=== PATIENT | female | born 1985 | race African-American/Black ===

== ENCOUNTER 2017-03-28 13:34 | Outpatient (CLI) | payer OTHER ==
--- NOTE | 2017-03-28 15:03 | CT ---
HEAD CT WITHOUT CONTRAST: Date: 03-28-17 Comparison: 05-26-16 History: Benign intracranial hypertension, obstructive hydrocephalus. Technique: Serial axial CT imaging at 5 mm intervals from vertex through skull base obtained without contrast. FINDINGS: The imaged paranasal sinuses/mastoid air cells are well aerated. There is a ventriculoperitoneal shunt inserted via a right posterior parietal approach, distal tip t erminating in the frontal horn of the left lateral ventricle, unchanged. There are numerous focal ar eas of calcification along the course of the falx. There is a extraaxial dense calcification along t he right frontal convexity, stable, which could represent a calcified meningioma or a dense area of dural calcification as well. There is no intracranial hemorrhage, midline shift, or mass effect. IMPRESSION: Stable head CT as described above. POS: [facility]
== END 2017-03-28 13:35 | disposition home or self-care (01) ==
LOC: TBSIIMAG 13:34
PROVIDERS: ATTEND Neurological Surgery
DX: G93.2 Benign intracranial hypertension (principal); G91.9 Hydrocephalus, unspecified; G93.89 Other specified disorders of brain; Z98.2 Presence of cerebrospinal fluid drainage device
CPT/HCPCS: 70450

== ENCOUNTER 2017-04-19 09:35 | Outpatient (CLI) | payer OTHER ==
--- NOTE | 2017-04-19 10:27 | RAD ---
CHEST ONE VIEW: History: Benign intracranial hypertension. FINDINGS: Comparison made with 03-18-16. The heart size is normal. The lungs are expanded without focal areas of consolidation, pneumothorax o r pleural effusions. Shunt catheter tubing is again seen. IMPRESSION: No radiographic evidence of acute cardiopulmonary process. POS: [facility]
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
--- NOTE | 2017-04-19 11:02 | RAD ---
SKULL TWO VIEWS: History: 31-year-old female with right sided shunt tube evaluation. FINDINGS: Right sided shunt tube in place. Unremarkable two view skull. IMPRESSION: Right sided shunt tube. POS: [facility]
--- NOTE | 2017-04-19 11:03 | RAD ---
TWO VIEWS CERVICAL SPINE: Indication: Evaluate shunt. FINDINGS: The visualized course of the shunt appears intact from the right angle of the mandible through the le elyssa of the upper thoracic course. The visualized lungs are clear. Visualized osseous structures are w ithin normal limits. IMPRESSION: Visualized shunt catheter within the region of the cervical spine appears intact. POS: [facility]
== END 2017-04-19 09:36 | disposition home or self-care (01) ==
LOC: TBSIIMAG 09:35
PROVIDERS: ATTEND Neurological Surgery
DX: G93.2 Benign intracranial hypertension (principal); Z98.2 Presence of cerebrospinal fluid drainage device
CPT/HCPCS: 70250; 71010; 72020; 74000

== ENCOUNTER 2017-05-04 14:33 | Outpatient (CLI) | payer OTHER ==
--- NOTE | 2017-05-04 15:54 | MRI ---
MRI CERVICAL SPINE: 05/04/17 HISTORY: Cervical pain, M54.2. Multiplanar and multisequence noncontrast enhanced MRI images cervical spine obtained. The spinal cord is unremarkable with no evidence of cord masses. C1-2, C2-3, C3-4: Unremarkable. C4-5: There is some mild disc desiccation. The central canal and neural foramen are patent. C5-6, C6-7 and C7-T1: Unremarkable. IMPRESSION: Some disc desiccation seen at the C4-5 disc level. The central canal and neural foramen are patent. N o significant evidence of neural foraminal narrowing is seen. POS: [facility]
== END 2017-05-04 14:34 | disposition home or self-care (01) ==
LOC: TBSIIMAG 14:33
PROVIDERS: ATTEND Neurological Surgery
DX: M54.2 Cervicalgia (principal); Z98.890 Other specified postprocedural states
CPT/HCPCS: 72141

== ENCOUNTER 2017-05-19 09:37 | Outpatient (CLI) | payer OTHER ==
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
== END 2017-05-19 09:38 | disposition home or self-care (01) ==
LOC: TBSIIMAG 09:37
PROVIDERS: ATTEND Neurological Surgery
DX: M54.12 Radiculopathy, cervical region (principal)
CPT/HCPCS: 72040

== ENCOUNTER 2017-11-19 21:50 | Emergency (ER) | payer BC, OTHER ==
[2017-11-19] MEDS ORDERED: Ketorolac Tromethamine 30 MG/ML VIAL ONE (22:24)
[2017-11-19] MEDS ORDERED: methylPREDNISolone Sod Succ/PF 125 MG/2 ML VIAL ONE (22:24)
[2017-11-19] MEDS ORDERED: Water For Inject, Bacteriostat 30 ML ONE (22:24)
[2017-11-19] MEDS ORDERED: diphenhydrAMINE 50 MG/ML VIAL ONE (22:24)
[2017-11-19] MEDS ORDERED: Metoclopramide HCl 10 MG/2 ML VIAL ONE (22:24)
--- NOTE | 2017-11-19 22:46 | RAD ---
SHUNTOGRAM: History: Headache for six hours. History of F[employer]ION BU[employer]ER shunt and seizures. FINDINGS: Views of the skull, neck, chest, and abdomen were performed to evaluate the patient's FASHION BUYER shunt. The s wallace appears intact without evidence of fracture of the shunt tubing. The tip of the FASHION BUYER shunt is in t he pelvis near the midline. There is a nonobstructed bowel gas pattern. There is no evidence of acute cardiopulmonary process. IMPRESSION: Intact F[employer]ION BU[employer]ER shunt. POS: [facility]
[2017-11-19 22:57] LABS: #Basophils 0.1 thou/uL (0.0-0.2); #Eosinphils 0.1 thou/uL (0.0-0.7); #Lymphocytes 3.4 thou/uL (1.20-3.40); #Monocytes 0.5 thou/uL (0.11-0.59); #Neutrophils 5.6 thou/uL (1.40-6.50); %Eosinophils 1.1 % (0.0-10.0); %Lymphocytes 35.2 % (21.0-51.0); %Monocytes 5.3 % (0.0-10.0); %Neutrophils 57.3 % (42.0-75.0); Hemoglobin 12.4 g/dL (12.0-16.0); Mean Corpuscular HGB CONC 33.6 g/dL (32.0-36.0); Mean Corpuscular Hemoglobin 31.1 pg (27.0-31.0); Mean Corpuscular Volume 92.7 fL (78.0-98.0); Platelet Count 364 thou/uL (130-400); RBC Distribution Width 11.5 % (11.5-14.5); Red Blood Cell (RBC) Count 3.99 mill/uL (4.20-5.40); White Blood Cell (WBC) Count 9.8 thou/uL (4.8-10.8)
[2017-11-19 23:02] LABS: INR-International Normal Ratio 1.1; Prothrombin Time 13.8 SEC (12.0-14.7)
[2017-11-19 23:20] LABS: ALT (SGPT) 32 U/L (8-55); AST (SGOT) 24 U/L (5-34); Albumin 4.4 g/dL (3.5-5.0); Alkaline Phosphatase 73 U/L (40-150); Anion Gap 13 mmol/L (10-20); BUN (Urea Nitrogen) 11 mg/dL (7.0-18.7); Bilirubin, Total 0.4 mg/dL (0.2-1.2); Calc. Creatinine Clearance 0 mL/min (70-130); Calcium 9.5 mg/dL (7.8-10.44); Carbon Dioxide 25 mmol/L (22-29); Chloride 105 mmol/L (98-107); Estimated GFR-MDRD Greater than 90; Globulin 3.1 g/dL (2.4-3.5); Glucose 94 mg/dL (70-105); Potassium 3.9 mmol/L (3.5-5.1); Protein, Total 7.5 g/dL (6.0-8.3); Sodium 139 mmol/L (136-145)
--- NOTE | 2017-11-19 23:52 | CT ---
CT BRAIN WITHOUT CONTRAST: Comparison: 03-28-17 History: History of seizures and [employer]ING [employer]ER shunt. Headache for six hours. Technique: Multiple contiguous axial images were obtained in a CT of the brain without contrast. FINDINGS: There is a right posterior approach ventriculostomy catheter with its tip in the left lateral ventric le. There is no evidence of hydrocephalus, internal hemorrhage or extraaxial fluid collection. No con fluent infarction is seen. The calvarium is unremarkable. The visualized shunt catheter is intact. The paranasal sinuses and mas toid air cells are well aerated. IMPRESSION: 1. No evidence of acute intracranial abnormality. 2. Unchanged [employer]ER shunt. POS: [facility]
== END 2017-11-20 03:06 | disposition home or self-care (01) ==
LOC: ERS 21:50
DX: R51 Headache (principal); G40.909 Epilepsy, unspecified, not intractable, without status epilepticus; Z79.01 Long term (current) use of anticoagulants; F32.9 Major depressive disorder, single episode, unspecified; F43.10 Post-traumatic stress disorder, unspecified; F17.210 Nicotine dependence, cigarettes, uncomplicated; Z79.899 Other long term (current) drug therapy
CPT/HCPCS: 36415; 70450; 75809; 80053; 85025; 85610; 85730; 96365; 96366; 96375; J1200; J1885; J2765; J2930

== ENCOUNTER 2017-12-06 15:25 | Outpatient (CLI) | payer BC, OTHER ==
--- NOTE | 2017-12-06 21:11 | MRI ---
BRAIN MRI WITH AND WITHOUT CONTRAST 12/06/17 HISTORY: Localized symptomatic epilepsy. Epileptic seizure. Complex partial seizures. COMPARISON: None. TECHNIQUE: Brain MRI is performed with and without intravenous gadolinium administration. Multisequential, multi planar imaging is performed. FINDINGS: There appears to be a ventriculoperitoneal shunt catheter with the distal tip in the body of the left lateral ventricle. The catheter crosses midline. The catheter approaches via the right occipital reg ion. On the axial gradient echo sequence, no parenchymal hemorrhage. No parenchymal mass, mass effect or midline shift. Brain volume is age appropriate. Cortical miller-whi te matter differentiation is preserved. No evidence of hydrocephalus. No evidence of sulcal effacemen t. No significant white matter hyperintensities. Adequate aeration of the sinuses and mastoid air cells. On the coronal sequences, there is symmetric signal intensity of the hippocampi. No evidence of mesio temporal sclerosis. The sella is partially empty. The pituitary stalk is midline. Central arterial flow voids are maintained. Absent restricted diffusion. The calvarium has a normal T1 marrow signal intensity. Midline brain parenchymal structures are unrem arkable. No pathologic enhancement of the brain parenchyma. IMPRESSION: 1. Right parietal [employer] shunt catheter without evidence of hydrocephalus. 2. No pathologic enhancement of the brain parenchyma. 3. No evidence of mesiotemporal sclerosis. 4. Partially empty sella is noted. POS: [facility]
== END 2017-12-06 15:26 | disposition home or self-care (01) ==
LOC: SCSMRI 15:25
PROVIDERS: ATTEND Psychiatry & Neurology Neurology
DX: G40.209 Localization-related (focal) (partial) symptomatic epilepsy and epileptic syndromes with complex partial seizures, not intractable, without status epilepticus (principal); Z98.2 Presence of cerebrospinal fluid drainage device
CPT/HCPCS: 70553

== ENCOUNTER 2018-02-01 11:14 | Emergency (ER) | payer BC, OTHER ==
[2018-02-01 12:06] LABS: #Basophils 0.1 thou/uL (0.0-0.2); #Eosinphils 0.1 thou/uL (0.0-0.7); #Lymphocytes 2.8 thou/uL (1.20-3.40); #Monocytes 0.6 thou/uL (0.11-0.59); #Neutrophils 5.4 thou/uL (1.40-6.50); %Basophils 1.2 % (0.0-1.0); %Eosinophils 0.9 % (0.0-10.0); %Monocytes 6.2 % (0.0-10.0); %Neutrophils 60.8 % (42.0-75.0); Hemoglobin 12.6 g/dL (12.0-16.0); INR-International Normal Ratio 1.1; Mean Corpuscular HGB CONC 34.2 g/dL (32.0-36.0); Mean Corpuscular Hemoglobin 30.3 pg (27.0-31.0); Mean Corpuscular Volume 88.5 fL (78.0-98.0); Mean Platelet Volume 7.5 fL (7.4-10.4); Platelet Count 370 thou/uL (130-400); Prothrombin Time 13.9 SEC (12.0-14.7); RBC Distribution Width 11.2 % (11.5-14.5); Red Blood Cell (RBC) Count 4.15 mill/uL (4.20-5.40); White Blood Cell (WBC) Count 8.9 thou/uL (4.8-10.8)
[2018-02-01] MEDS ORDERED: Acetaminophen 500 MG TAB ONE (12:08)
[2018-02-01 12:13] LABS: Anion Gap 11 mmol/L (10-20); BUN (Urea Nitrogen) 12 mg/dL (7.0-18.7); Calc. Creatinine Clearance 0 mL/min (70-130); Calcium 9.6 mg/dL (7.8-10.44); Carbon Dioxide 24 mmol/L (22-29); Chloride 108 mmol/L (98-107); Estimated GFR-MDRD Greater than 90; Glucose 98 mg/dL (70-105); Sodium 139 mmol/L (136-145)
== END 2018-02-01 12:38 | disposition home or self-care (01) ==
LOC: SCSER 11:14
DX: G40.909 Epilepsy, unspecified, not intractable, without status epilepticus (principal); F32.9 Major depressive disorder, single episode, unspecified; F43.10 Post-traumatic stress disorder, unspecified; F17.210 Nicotine dependence, cigarettes, uncomplicated
CPT/HCPCS: 80048; 85025; 85610; 85730; 99284

== ENCOUNTER 2018-08-09 07:56 | Emergency (ER) | payer BC, OTHER ==
[2018-08-09] MEDS ORDERED: Ketorolac Tromethamine 30 MG/ML VIAL ONE (08:26)
[2018-08-09] MEDS ORDERED: diphenhydrAMINE 50 MG/ML VIAL ONE (08:26)
[2018-08-09] MEDS ORDERED: Promethazine HCl 25 MG/ML VIAL ONE (08:27)
[2018-08-09] MEDS ORDERED: Prochlorperazine 10 MG/2 ML VIAL ONE (08:27)
== END 2018-08-09 10:46 | disposition home or self-care (01) ==
LOC: SCSER 07:56
DX: R51 Headache (principal); G40.909 Epilepsy, unspecified, not intractable, without status epilepticus; F32.9 Major depressive disorder, single episode, unspecified; F43.10 Post-traumatic stress disorder, unspecified; F17.210 Nicotine dependence, cigarettes, uncomplicated
CPT/HCPCS: 96365; 96368; 96375; J0780; J1200; J1885; J2550

== ENCOUNTER 2020-04-30 12:16 | Emergency (ER) | payer BC, OTHER ==
[2020-04-30 13:16] LABS: #Basophils 0.1 thou/uL (0.0-0.2); #Eosinphils 0.3 thou/uL (0.0-0.7); #Lymphocytes 4.2 thou/uL (1.20-3.40); #Monocytes 0.7 thou/uL (0.11-0.59); #Neutrophils 7.2 thou/uL (1.40-6.50); %Basophils 0.9 % (0.0-1.0); %Eosinophils 2.8 % (0.0-10.0); %Lymphocytes 33.3 % (21.0-51.0); %Monocytes 5.2 % (0.0-10.0); %Neutrophils 57.8 % (42.0-75.0); Hemoglobin 12.5 g/dL (12.0-16.0); Mean Corpuscular HGB CONC 32.7 g/dL (32.0-36.0); Mean Corpuscular Hemoglobin 30.5 pg (27.0-31.0); Mean Platelet Volume 7.7 fL (7.4-10.4); Platelet Count 377 thou/uL (130-400); RBC Distribution Width 12.6 % (11.5-14.5); White Blood Cell (WBC) Count 12.5 thou/uL (4.8-10.8)
[2020-04-30 13:51] LABS: ALT (SGPT) 24 U/L (8-55); AST (SGOT) 23 U/L (5-34); Albumin 4.1 g/dL (3.5-5.0); Alkaline Phosphatase 73 U/L (40-110); Anion Gap 15 mmol/L (10-20); BUN (Urea Nitrogen) 11 mg/dL (7.0-18.7); Bilirubin, Total 0.3 mg/dL (0.2-1.2); Calc. Creatinine Clearance 0 mL/min (70-130); Calcium 8.9 mg/dL (7.8-10.44); Carbon Dioxide 23 mmol/L (22-29); Chloride 106 mmol/L (98-107); Globulin 3.7 g/dL (2.4-3.5); Glucose 79 mg/dL (70-105); Potassium 4.3 mmol/L (3.5-5.1); Protein, Total 7.8 g/dL (6.0-8.3); Sodium 140 mmol/L (136-145)
[2020-04-30 15:53] LABS: Bilirubin Negative (Negative); Blood, Urine Negative (Negative); Clarity Clear (Clear); Glucose, Urine (Dipstick) Normal (Negative); Ketone, Urine Negative (Negative); Leukocyte Negative Leu/uL (Negative); Nitrite Negative (Negative); Protein, Urine (Dipstick) 10 mg/dL (Neg-Trace); Specific Gravity, Urine 1.029 (1.002-1.036); Urobilinogen Normal mg/dL (Less than 2)
[2020-04-30 15:54] LABS: Pregnancy Test - Urine (BHCG) Negative (Negative); Pregu Control Background? CLEAR/WHITE (CLR/WHITE); Pregu Control Bar Appear? YES (CONTROL BAR); Specific Gravity 1.029 (1.002-1.036)
--- NOTE | 2020-04-30 16:45 | CT ---
Exam: Head CT without contrast HISTORY: Emergency department presentation for seizure activity while at work. COMPARISON: 11/19/2017 Correlation: Brain MRI 725 FINDINGS: Hemorrhage: No intraparenchymal hemorrhage or extra-axial hematoma. Brain parenchyma: Cortical mliler-white matter differentiation is preserved. No mass effect or midline shift. Basilar cisterns are patent. Ventricular system: Redemonstration of a ventriculoperitoneal shunt catheter via the right parietal a pproach. Catheter crosses midline. Distal tip is presumed to be in the anterior body of the left ventricle. Ventricle system appears to be decompressed. Correlate for possible over shunting. Calvarium: Intact. Stable shanae hole defect in the right parietal calvarium. Sinuses and mastoid air cells: Adequate aeration. IMPRESSION: 1. No acute intracranial process 2. Ventricle peritoneal shunt catheter as described above. Correlate for possible over shunting.
== END 2020-04-30 17:11 | disposition home or self-care (01) ==
LOC: ERS 12:16
DX: G40.909 Epilepsy, unspecified, not intractable, without status epilepticus (principal); F17.210 Nicotine dependence, cigarettes, uncomplicated; Z79.01 Long term (current) use of anticoagulants; Z79.899 Other long term (current) drug therapy
CPT/HCPCS: 36415; 70450; 80053; 80177; 81003; 81025; 85025

== ENCOUNTER 2021-05-17 12:21 | Outpatient (CLI) | payer BC | END 2021-05-17 12:22 | disposition home or self-care (01) | LOC: ULT 12:21 | PROVIDERS: ATTEND Family Medicine | DX: I95.1 Orthostatic hypotension (principal); R60.0 Localized edema; I08.1 Rheumatic disorders of both mitral and tricuspid valves | CPT/HCPCS: 93306 ==

== ENCOUNTER 2022-04-28 12:32 | Outpatient (CLI) | payer BC | END 2022-04-28 12:33 | disposition home or self-care (01) | LOC: EEG 12:32 | PROVIDERS: ATTEND Psychiatry & Neurology Neurology | DX: G43.109 Migraine with aura, not intractable, without status migrainosus (principal); Z98.2 Presence of cerebrospinal fluid drainage device | CPT/HCPCS: 70553; 95816; 95819; 95957 ==

== ENCOUNTER 2023-05-09 12:37 | Inpatient (IN) | payer BC ==
[2023-05-09 14:03] LABS: Hematocrit 38.6 % (36.0-47.0); Hemoglobin 12.7 g/dL (12.0-16.0); Manual Diff?? YES; Mean Corpuscular HGB CONC 32.9 g/dL (32.0-36.0); Mean Corpuscular Hemoglobin 29.6 pg (27.0-31.0); Mean Platelet Volume 9.4 fL (7.4-10.4); Platelet Count 447 10x3/uL (130-400); RBC Distribution Width 14.1 % (11.5-14.5); Red Blood Cell (RBC) Count 4.29 mill/uL (4.20-5.40)
[2023-05-09 14:08] LABS: Delete Auto Diff?? YES
[2023-05-09 14:25] LABS: Band 2 % (5-11); Lymphocytes 39 % (21-51); Monocytes 6 % (0-10); Neutrophil 52 % (42-75); Reactive Lymphocytes 1 % (0-10)
[2023-05-09 14:26] LABS: Platelet Adequacy Comment Appears Increased; RBC Morph Comment Within Normal Limits
[2023-05-09 14:32] LABS: ALT (SGPT) 76 U/L (8-55); AST (SGOT) 33 U/L (5-34); Albumin 4.4 g/dL (3.5-5.0); Alkaline Phosphatase 103 U/L (40-110); Anion Gap 14 mmol/L (10-20); BUN (Urea Nitrogen) 10 mg/dL (7.0-18.7); Bilirubin, Total 0.2 mg/dL (0.2-1.2); Calc. Creatinine Clearance 0 mL/min (70-130); Calcium 9.4 mg/dL (7.8-10.44); Carbon Dioxide 22 mmol/L (22-29); Chloride 107 mmol/L (98-107); Estimated GFR 103; Globulin 3.6 g/dL (2.4-3.5); Glucose 71 mg/dL (70-105); Potassium 3.6 mmol/L (3.5-5.1); Sodium 139 mmol/L (136-145)
[2023-05-09 15:40] LABS: Prothrombin Time 13.8 sec (12.0-14.7)
[2023-05-09 15:41] LABS: PTT 27.8 sec (22.9-36.1)
[2023-05-09 17:20] LABS: Lactic Acid 1.3 mmol/L (0.5-2.2)
[2023-05-09] MEDS ORDERED: Acetaminophen 500 MG TAB ONE (17:34)
[2023-05-09] MEDS ORDERED: Bisacodyl 10 MG SUPP PR PRN (18:50)
[2023-05-09] MEDS ORDERED: Senokot S 8.6-50 MG TAB PO PRN (18:50)
[2023-05-09] MEDS ORDERED: Bisacodyl 5 MG TAB PO PRN (18:50)
[2023-05-09] MEDS ORDERED: Lorazepam 2 MG/ML VIAL SLOW IVP PRN (18:50)
[2023-05-09 19:05] LABS: BHCG - Serum Negative (NEGATIVE); Pregs Control Background? CLEAR/WHITE (CLR/WHITE); Pregs Control Bar Appear? YES (CONTROL BAR)
[2023-05-09] MEDS: Apixaban 5 MG TAB PO SCH (22:38)
[2023-05-09 22:42] VITALS: BMI 46.0
[2023-05-10 05:41] LABS: #Eosinphils 0.2 thou/uL (0.0-0.7); #Monocytes 0.6 thou/uL (0.11-0.59); #Neutrophils 4.7 thou/uL (1.40-6.50); %Basophils 0.5 % (0.0-1.0); %Eosinophils 1.8 % (0.0-10.0); %Lymphocytes 35.6 % (21.0-51.0); %Monocytes 6.9 % (0.0-10.0); %Neutrophils 55.1 % (42.0-75.0); Hematocrit 35.3 % (36.0-47.0); Hemoglobin 11.4 g/dL (12.0-16.0); Mean Corpuscular HGB CONC 32.3 g/dL (32.0-36.0); Mean Corpuscular Hemoglobin 29.5 pg (27.0-31.0); Mean Corpuscular Volume 91.2 fl (78.0-98.0); Mean Platelet Volume 9.8 fL (7.4-10.4); Platelet Count 413 10x3/uL (130-400); RBC Distribution Width 14.2 % (11.5-14.5); Red Blood Cell (RBC) Count 3.87 mill/uL (4.20-5.40); White Blood Cell (WBC) Count 8.5 10x3/uL (4.8-10.8)
[2023-05-10 06:04] LABS: Anion Gap 11 mmol/L (10-20); BUN (Urea Nitrogen) 10 mg/dL (7.0-18.7); Calc. Creatinine Clearance 253 mL/min (70-130); Calcium 8.7 mg/dL (7.8-10.44); Carbon Dioxide 24 mmol/L (22-29); Cardiac Risk 5.7 (Less than 4.5); Chloride 108 mmol/L (98-107); Cholesterol 221 mg/dl (< 200 Desired); Estimated GFR 107; Glucose 97 mg/dL (70-105); HDL Cholesterol 39 mg/dL (>60 Neg Risk); LDL Cholesterol, Calculated 161 mg/dL; Magnesium 2.1 mg/dL (1.6-2.6); Potassium 3.6 mmol/L (3.5-5.1); Sodium 139 mmol/L (136-145); Triglycerides 104 mg/dL (Less than 150)
[2023-05-10] MEDS: Lorazepam 2 MG/ML VIAL SLOW IVP SCH ×2 (07:24→12:12)
[2023-05-10] MEDS ORDERED: Enoxaparin 40 MG (0.4 mL) SYRINGE SC SCH (09:00)
[2023-05-10] MEDS ORDERED: Magnevist 469MG/ML 20 ML VIAL ONE (10:00)
[2023-05-10] MEDS: Apixaban 5 MG TAB PO SCH ×2 (10:18→22:11)
[2023-05-10] MEDS ORDERED: hydrALAZINE 25 MG TAB PO PRN (12:52)
[2023-05-10 18:12] LABS: Bacteria/HPF None Seen HPF (None Seen); Bilirubin Negative (Negative); Blood, Urine Negative (Negative); CAUTI Indications for Culture Dysuria,urgency,freq; Clarity Turbid (Clear); Glucose, Urine (Dipstick) Normal (Negative); Ketone, Urine Negative (Negative); Leukocyte 25 Leu/uL (Negative); Nitrite Negative (Negative); Protein, Urine (Dipstick) 20 mg/dL (Neg-Trace); RBC/HPF 0-3 HPF (0-3); Specific Gravity, Urine 1.034 (1.002-1.036); Urobilinogen Normal mg/dL (Less than 2); WBC/HPF 0-3 HPF (0-3)
[2023-05-10 18:15] LABS: Urine Culture Reflex No No
[2023-05-10] MEDS: hydrOXYzine 25 MG TAB PO SCH ×2 (19:01→22:08)
[2023-05-10] MEDS ORDERED: Phenytoin Extended Release 100 MG CAP PO SCH (21:00)
[2023-05-10] MEDS: levETIRAcetam 500 MG TAB PO SCH (22:08)
[2023-05-10] MEDS: Diazepam 5 MG TAB PO SCH (22:10)
[2023-05-10] MEDS: Sertraline 100 MG TAB PO SCH (22:10)
[2023-05-10] MEDS: Topiramate 25 MG TAB PO SCH (22:10)
[2023-05-10] MEDS: traZODone HCl 50 MG TAB PO SCH (22:11)
[2023-05-10] MEDS: Prazosin HCl 1 MG CAP PO SCH (22:11)
[2023-05-10] MEDS: Aripiprazole 15 MG TAB PO SCH (22:12)
[2023-05-11 05:37] LABS: #Eosinphils 0.1 thou/uL (0.0-0.7); #Monocytes 0.5 thou/uL (0.11-0.59); #Neutrophils 6.4 thou/uL (1.40-6.50); %Basophils 0.4 % (0.0-1.0); %Eosinophils 1.1 % (0.0-10.0); %Lymphocytes 29.2 % (21.0-51.0); %Monocytes 5.1 % (0.0-10.0); Hematocrit 36.4 % (36.0-47.0); Hemoglobin 11.8 g/dL (12.0-16.0); Mean Corpuscular HGB CONC 32.4 g/dL (32.0-36.0); Mean Corpuscular Hemoglobin 29.6 pg (27.0-31.0); Mean Corpuscular Volume 91.2 fl (78.0-98.0); Mean Platelet Volume 9.6 fL (7.4-10.4); Platelet Count 393 10x3/uL (130-400); RBC Distribution Width 14.2 % (11.5-14.5); Red Blood Cell (RBC) Count 3.99 mill/uL (4.20-5.40)
[2023-05-11 06:02] LABS: Phosphorus 3.6 mg/dL (2.3-4.7)
[2023-05-11 06:03] LABS: ALT (SGPT) 44 U/L (8-55); AST (SGOT) 14 U/L (5-34); Albumin 3.6 g/dL (3.5-5.0); Alkaline Phosphatase 82 U/L (40-110); Anion Gap 13 mmol/L (10-20); BUN (Urea Nitrogen) 10 mg/dL (7.0-18.7); Bilirubin, Total 0.2 mg/dL (0.2-1.2); Calc. Creatinine Clearance 267 mL/min (70-130); Calcium 8.5 mg/dL (7.8-10.44); Carbon Dioxide 20 mmol/L (22-29); Chloride 110 mmol/L (98-107); Estimated GFR 114; Globulin 3.3 g/dL (2.4-3.5); Glucose 95 mg/dL (70-105); Potassium 3.5 mmol/L (3.5-5.1); Protein, Total 6.9 g/dL (6.0-8.3); Sodium 139 mmol/L (136-145)
[2023-05-11] MEDS: Topiramate 25 MG TAB PO SCH ×2 (08:58→21:19)
[2023-05-11] MEDS: levETIRAcetam 500 MG TAB PO SCH ×2 (08:58→21:16)
[2023-05-11] MEDS: hydrOXYzine 25 MG TAB PO SCH ×4 (08:58→21:17)
[2023-05-11] MEDS: Apixaban 5 MG TAB PO SCH ×2 (08:58→21:17)
[2023-05-11] MEDS: SUMAtriptan Succinate 50 MG TAB PO PRN (12:16)
[2023-05-11] MEDS: Lorazepam 2 MG/ML VIAL SLOW IVP SCH (12:44)
[2023-05-11] MEDS: Lidocaine 4% Patch TD SCH (17:54)
[2023-05-11] MEDS ORDERED: Phenytoin Extended Release 100 MG CAP PO SCH (21:00)
[2023-05-11] MEDS: Diazepam 5 MG TAB PO SCH (21:16)
[2023-05-11] MEDS: Prazosin HCl 1 MG CAP PO SCH (21:16)
[2023-05-11] MEDS: Aripiprazole 15 MG TAB PO SCH (21:17)
[2023-05-11] MEDS: Sertraline 100 MG TAB PO SCH (21:17)
[2023-05-11] MEDS: traZODone HCl 50 MG TAB PO SCH (21:17)
[2023-05-11] MEDS: Cholecalciferol 1,000 UNITS (25 MCG) TAB PO SCH (21:17)
[2023-05-12] MEDS ORDERED: Transdermal Patch Removal TOP SCH (05:00)
[2023-05-12] MEDS: SUMAtriptan Succinate 50 MG TAB PO PRN (05:57)
[2023-05-12 06:36] LABS: #Eosinphils 0.1 thou/uL (0.0-0.7); #Monocytes 0.8 thou/uL (0.11-0.59); #Neutrophils 7.6 thou/uL (1.40-6.50); %Basophils 0.3 % (0.0-1.0); %Eosinophils 0.9 % (0.0-10.0); %Monocytes 6.8 % (0.0-10.0); %Neutrophils 65.7 % (42.0-75.0); Hematocrit 35.9 % (36.0-47.0); Hemoglobin 11.5 g/dL (12.0-16.0); Mean Corpuscular Volume 90.7 fl (78.0-98.0); Mean Platelet Volume 9.9 fL (7.4-10.4); Platelet Count 404 10x3/uL (130-400); RBC Distribution Width 14.1 % (11.5-14.5); Red Blood Cell (RBC) Count 3.96 mill/uL (4.20-5.40); White Blood Cell (WBC) Count 11.6 10x3/uL (4.8-10.8)
[2023-05-12 07:01] LABS: Anion Gap 12 mmol/L (10-20); BUN (Urea Nitrogen) 7 mg/dL (7.0-18.7); Calc. Creatinine Clearance 263 mL/min (70-130); Calcium 8.7 mg/dL (7.8-10.44); Carbon Dioxide 21 mmol/L (22-29); Chloride 110 mmol/L (98-107); Estimated GFR 112; Glucose 109 mg/dL (70-105); Sodium 139 mmol/L (136-145)
[2023-05-12] MEDS: Topiramate 25 MG TAB PO SCH ×2 (08:41→20:59)
[2023-05-12] MEDS: levETIRAcetam 500 MG TAB PO SCH ×2 (08:41→20:57)
[2023-05-12] MEDS: Apixaban 5 MG TAB PO SCH ×2 (08:41→20:53)
[2023-05-12] MEDS: hydrOXYzine 25 MG TAB PO SCH ×3 (08:43→20:53)
[2023-05-12] MEDS ORDERED: lamoTRIgine 25 MG TAB PO SCH (09:00)
[2023-05-12] MEDS ORDERED: Acetaminophen 500 MG TAB PO PRN (11:17)
[2023-05-12] MEDS: Lidocaine 4% Patch TD SCH (16:40)
[2023-05-12] MEDS: Aripiprazole 15 MG TAB PO SCH (20:52)
[2023-05-12] MEDS: Diazepam 5 MG TAB PO SCH (20:52)
[2023-05-12] MEDS: Sertraline 100 MG TAB PO SCH (20:53)
[2023-05-12] MEDS: Cholecalciferol 1,000 UNITS (25 MCG) TAB PO SCH (20:53)
[2023-05-12] MEDS: Prazosin HCl 1 MG CAP PO SCH (20:53)
[2023-05-12] MEDS ORDERED: traZODone HCl 50 MG TAB PO SCH (21:00)
[2023-05-12] MEDS ORDERED: Phenytoin Extended Release 100 MG CAP PO SCH (21:00)
[2023-05-13 00:32] VITALS: BP 128/77; TEMP 98.2
[2023-05-13 01:21] LABS: SARS-CoV-2 NAA Rapid Test Not Detected (NotDetected)
== END 2023-05-13 04:00 | disposition short-term general hospital (02) | DRG 103 ==
LOC: ERS 12:37 → 2SE 21:49 → OBSVTOIN 05-11 15:25
PROVIDERS: ADMIT Hospitalist; ATTEND Family Medicine
PROC: 4A00X4Z Measurement of Central Nervous Electrical Activity, External Approach (ICD-10-PCS; principal; 2023-05-11)
DX: G93.2 Benign intracranial hypertension (principal); F31.9 Bipolar disorder, unspecified; F43.10 Post-traumatic stress disorder, unspecified; R20.2 Paresthesia of skin; H54.7 Unspecified visual loss; R29.898 Other symptoms and signs involving the musculoskeletal system; G62.9 Polyneuropathy, unspecified; E55.9 Vitamin D deficiency, unspecified; M47.812 Spondylosis without myelopathy or radiculopathy, cervical region; M50.222 Other cervical disc displacement at C5-C6 level; Z88.0 Allergy status to penicillin; Z88.2 Allergy status to sulfonamides; Z91.013 Allergy to seafood; Z79.899 Other long term (current) drug therapy; Z86.73 Personal history of transient ischemic attack (TIA), and cerebral infarction without residual deficits; Z11.52 Encounter for screening for COVID-19
CPT/HCPCS: 36415; 70450; 70553; 72141; 72146; 72148; 75809; 80048; 80053; 80061; 80177; 81001; 82306; 82310; 83605; 83735; 84100; 84145; 84146; 84443; 84703; 85025; 85610; 85730; 87040; 95711; 95819; 96360; 96374; 96376; A9579; G0378; J2060; U0002

== ENCOUNTER 2025-02-16 09:18 | Emergency (ER) | payer OTHER, SELFPAY ==
[2025-02-16 10:04] LABS: #Basophils 0.06 10x3/uL (0.0-0.2); #Eosinophils 0.10 10x3/uL (0.0-0.7); #Monocytes 0.39 10x3/uL (0.11-0.59); #Neutrophils 5.64 10x3/uL (1.40-6.50); %Basophils 0.6 % (0.0-1.0); %Eosinophils 1.0 % (0.0-10.0); %Lymphocytes 35.9 % (21.0-51.0); %Monocytes 4.0 % (0.0-10.0); %Neutrophils 58.2 % (42.0-75.0); Hematocrit 40.1 % (36.0-47.0); Hemoglobin 12.9 g/dL (12.0-16.0); Mean Corpuscular Hemoglobin 29.1 pg (27.0-31.0); Mean Corpuscular Volume 90.3 fL (78.0-98.0); Platelet Count 376 10x3/uL (130-400); Red Blood Cell (RBC) Count 4.44 mill/uL (4.20-5.40); White Blood Cell (WBC) Count 9.70 10x3/uL (4.8-10.8)
[2025-02-16] MEDS ORDERED: Prochlorperazine 10 MG/2 ML VIAL ONE (10:09)
[2025-02-16] MEDS ORDERED: Ketorolac Tromethamine 30 MG (1 mL) VIAL ONE (10:17)
[2025-02-16 10:18] LABS: BHCG - Serum Negative (NEGATIVE); Pregs Control Background? CLEAR/WHITE (CLR/WHITE); Pregs Control Bar Appear? YES (CONTROL BAR)
[2025-02-16 10:26] LABS: ALT (SGPT) 9 U/L (Less than 34); AST (SGOT) 16 U/L (11-34); Albumin 3.9 g/dL (3.1-4.5); Alkaline Phosphatase 69 U/L (40-110); Anion Gap 16 mmol/L (10-20); BUN (Urea Nitrogen) 8 mg/dL (7.0-18.7); Bilirubin, Total 0.3 mg/dL (0.3-1.2); Calc. Creatinine Clearance 0 mL/min (70-130); Calcium 9.4 mg/dL (7.8-10.44); Carbon Dioxide 15 mmol/L (22-29); Chloride 114 mmol/L (98-107); Globulin 3.9 g/dL (2.4-3.5); Glucose 85 mg/dL (70-105); Potassium 4.6 mmol/L (3.5-5.1); Sodium 140 mmol/L (136-145)
== END 2025-02-16 13:25 | disposition home or self-care (01) ==
LOC: ERS 09:18
DX: G40.909 Epilepsy, unspecified, not intractable, without status epilepticus (principal); S09.90XA Unspecified injury of head, initial encounter; R51.9 Headache, unspecified; F17.210 Nicotine dependence, cigarettes, uncomplicated; W18.30XA Fall on same level, unspecified, initial encounter; Z79.01 Long term (current) use of anticoagulants; Z55.6 Problems related to health literacy
CPT/HCPCS: 70450; 72125; 72131; 75809; 80053; 84703; 85025; 93005; 96374; 96375; J0780; J1885